=== PATIENT | female | born 1990 | race Two or more races ===

== ENCOUNTER 2016-07-06 09:42 | Inpatient (IN) | payer MEDICAID ==
[2016-07-06] VITALS (8 sets, daily range): BP systolic 100–128; BP diastolic 58–71
[~2016-07-06] VITALS: Ht 167.6 cm; Wt 95.7 kg
[2016-07-06] MEDS ORDERED: MORPHINE SULFATE INJ 4 MG/ML DISP.SYRIN ONE (09:49)
[2016-07-06] MEDS ORDERED: IV NS 0.9% 1,000 ML ONE ×2 (09:49→11:31)
[2016-07-06] MEDS ORDERED: ONDANSETRON HCL/PF 4 MG/2 ML VIAL ONE (09:49)
[2016-07-06] MEDS ORDERED: IV SET PRIMARY 1 EA INFUS.SET MC ONE ×2 (09:49→11:30)
[2016-07-06] MEDS ORDERED: ONDANSETRON HCL/PF 4 MG/2 ML VIAL IVP ONE (10:00)
[2016-07-06] MEDS ORDERED: IV NS 0.9% 1,000 ML BAG IV ONE ×2 (10:00→11:30)
[2016-07-06] MEDS ORDERED: MORPHINE SULFATE INJ 2 MG/ML DISP.SYRIN IV ONE (10:00)
[2016-07-06 10:01] LABS: BASOPHILS # (AUTO) 0.2 /CMM (0.0-0.2); BASOPHILS % (AUTO) 2.1 % (0.0-2.0); DIFF TOTAL % 100 %; EOSINOPHILS % (AUTO) 0.4 % (0.0-6.0); HEMATOCRIT 41 % (33-45); HEMOGLOBIN 13.7 g/dL (11.5-14.8); LYMPHOCYTES # (AUTO) 2.1 /CMM (0.8-4.8); LYMPHOCYTES % (AUTO) 17.8 % (20.0-44.0); MEAN CORPUSCULAR HEMOGLOBIN 30 PG (26.0-33.0); MEAN CORPUSCULAR HGB CONC 33 g/dl (31.0-36.0); MEAN CORPUSCULAR VOLUME 89 fL (82-100); MONOCYTES # (AUTO) 0.6 /CMM (0.1-1.30); MONOCYTES % (AUTO) 4.8 % (2.0-12.0); NEUTROPHILS # (AUTO) 8.7 /CMM (1.8-8.9); NEUTROPHILS % (AUTO) 74.9 % (43.0-81.0); PLATELET COUNT (AUTO) 244 /CMM (150-450); RED BLOOD CELL COUNT(AUTO) 4.65 MIL/uL (4.0-5.2); WHITE BLOOD COUNT (AUTO) 11.6 K/uL (4.3-11.0)
[2016-07-06 10:05] LABS: KETONES,URINE Negative (NEGATIVE); LEUKOCYTE ESTERASE ,URINE Negative (NEGATIVE); PH,URINE 5.5 (5.0-8.0)
[2016-07-06 10:09] LABS: ADD UA MICROSCOPIC YES
[2016-07-06 10:11] LABS: RBC,URINE 0-2 /HPF (0-2)
[2016-07-06 10:12] LABS: ADD URINE CULTURE NO
[2016-07-06 10:13] LABS: PREGNANCY TEST URINE QUAL NEGATIVE (NEGATIVE)
[2016-07-06 10:25] LABS: ALBUMIN 3.6 g/dL (3.4-5.0); BILIRUBIN,DIRECT 0.1 mg/dL (0.0-0.2); BILIRUBIN,TOTAL 0.4 mg/dL (0.2-1.0); CALCIUM, SERUM 8.4 mg/dL (8.5-10.1); CREATININE 0.7 mg/dL (0.6-1.3); INDIRECT BILIRUBIN 0.3 mg/dL (0.0-1.1); TOTAL PROTEIN, SERUM 7.5 g/dL (6.4-8.2)
[2016-07-06 10:46] LABS: POTASSIUM 3.6 mmol/L (3.5-5.1)
[2016-07-06] MEDS ORDERED: PIPERACILLIN /TAZOBACTAM 3.375 G in IV D5W 50 ML IV ONE (11:00)
[2016-07-06] MEDS ORDERED: IV SET PRIMARY PUMP SET 1 EA INFUS.SET MC ONE ×2 (11:02→12:52)
[2016-07-06 12:25] LABS: *LACTIC ACID REFLEX FLAG YES
[2016-07-06] MEDS ORDERED: ONDANSETRON HCL/PF 4 MG/2 ML VIAL IVP PRN (12:30)
[2016-07-06] MEDS ORDERED: MAGNESIUM HYDROXIDE 30 ML UDC PO PRN (12:30)
[2016-07-06] MEDS ORDERED: MAG HYDROX/AL HYDROX/SIMETH 30 ML UDC PO PRN (12:30)
[2016-07-06] MEDS ORDERED: ACETAMINOPHEN 325 MG TABLET PO PRN (12:30)
[2016-07-06] MEDS ORDERED: ZOLPIDEM TARTRATE 5 MG TABLET PO PRN (12:30)
[2016-07-06] MEDS ORDERED: Z GUARD REMEDY 2 OZ OINT TP PRN (12:30)
[2016-07-06] MEDS ORDERED: MORPHINE SULFATE INJ 2 MG/ML DISP.SYRIN IV PRN (12:30)
[2016-07-06] MEDS: IV NS 0.9% 1,000 ML IV PRN (12:55)
[2016-07-06] MEDS ORDERED: BUPIVACAINE MPF W/EPI 0.25% 30 ML VIAL ONE (13:21)
[2016-07-06] MEDS ORDERED: LIDOCAINE HCL/PF 1% 30 ML SDV ONE (13:21)
[2016-07-06] MEDS ORDERED: MIDAZOLAM HCL 2 MG/2ML VIAL ONE (14:49)
[2016-07-06] MEDS ORDERED: FENTANYL PF 100MCG/2ML AMPUL ONE ×2 (14:49→16:36)
[2016-07-06] MEDS ORDERED: ROCURONIUM BROMIDE 50 MG/5 ML ONE (14:50)
[2016-07-06] MEDS ORDERED: ANESTHESIA TRAY IN PYXIS 1 EA TRAY MC ONE (19:44)
[2016-07-06] MEDS ORDERED: SECONDARY IV SET 1 EA INFUS.SET MC ONE (20:03)
[2016-07-06] MEDS: PIPERACILLIN /TAZOBACTAM 3.375 G in IV D5W 50 ML IV SCH (20:06)
[2016-07-06] MEDS: HYDROCODONE/APAP 5/325MG 1 EACH TABLET PO PRN (21:42)
[2016-07-07] MEDS: PIPERACILLIN /TAZOBACTAM 3.375 G in IV D5W 50 ML IV SCH ×3 (01:30→11:25)
[2016-07-07] MEDS: HYDROCODONE/APAP 5/325MG 1 EACH TABLET PO PRN ×3 (04:55→13:41)
[2016-07-07] MEDS ORDERED: PANTOPRAZOLE 40 MG TABLET.DR PO SCH (07:30)
[2016-07-07 08:00] VITALS: BP 106/61
[2016-07-07 08:20] LABS: CREATININE 0.5 mg/dL (0.6-1.3); PHOSPHORUS 3.6 mg/dL (2.5-4.9); POTASSIUM 3.7 mmol/L (3.5-5.1)
[2016-07-07] MEDS ORDERED: ENOXAPARIN SODIUM 40 MG/0.4 ML DISP.SYRIN SQ SCH (09:00)
[2016-07-07 09:25] LABS: BASOPHILS % (AUTO) 0.3 % (0.0-2.0); DIFF TOTAL % 100 %; HEMATOCRIT 34 % (33-45); HEMOGLOBIN 11.4 g/dL (11.5-14.8); LYMPHOCYTES # (AUTO) 1.3 /CMM (0.8-4.8); MEAN CORPUSCULAR HEMOGLOBIN 30 PG (26.0-33.0); MEAN CORPUSCULAR HGB CONC 34 g/dl (31.0-36.0); MEAN CORPUSCULAR VOLUME 88 fL (82-100); MONOCYTES # (AUTO) 0.4 /CMM (0.1-1.30); MONOCYTES % (AUTO) 4.1 % (2.0-12.0); NEUTROPHILS % (AUTO) 83.6 % (43.0-81.0); PLATELET COUNT (AUTO) 224 /CMM (150-450); RED BLOOD CELL COUNT(AUTO) 3.83 MIL/uL (4.0-5.2); WHITE BLOOD COUNT (AUTO) 10.8 K/uL (4.3-11.0)
[2016-07-07] MEDS: IV NS 0.9% 1,000 ML IV PRN (09:35)
[2016-07-07 16:00] VITALS: BP 120/79
== END 2016-07-07 17:10 | disposition home or self-care (01) | DRG 225 ==
LOC: ER 09:45 → MED 12:11
PROVIDERS: ADMIT Internal Medicine; ATTEND Internal Medicine
PROC: 0DTJ4ZZ Resection of Appendix, Percutaneous Endoscopic Approach (ICD-10-PCS; principal; 2016-07-06 15:38)
DX: K35.2 Acute appendicitis with generalized peritonitis (principal); E83.51 Hypocalcemia; E66.9 Obesity, unspecified; Z68.34 Body mass index [BMI] 34.0-34.9, adult
CPT/HCPCS: 36415; 76856-TC; 80048-TC; 80076-TC; 81000-TC; 83605-TC; 83690-TC; 83735-TC; 84100-TC; 84702-TC; 84703-TC; 85025-TC; 87040-TC; 87081-TC; 88304-TC; 88305-TC; A4606; J1650; J2250; J2270; J2405; J2543; J3010; J3490; J7030; J7060; Z7610

== ENCOUNTER 2016-07-13 10:27 | Emergency (ER) | payer MEDICAID ==
[~2016-07-13] VITALS: Ht 170.2 cm; Wt 87.5 kg
[2016-07-13 10:34] VITALS: BP 132/59
== END 2016-07-13 10:53 | disposition home or self-care (01) ==
LOC: ER 10:28
DX: Z48.02 Encounter for removal of sutures (principal)
CPT/HCPCS: A4606; Z7610